=== PATIENT | female | born 1950 | race Caucasian/White ===

== ENCOUNTER → 2019-02-25 | Outpatient (CLI) | payer MEDICARE ==
--- NOTE | 2019-02-25 16:16 | REP ---
CT RIGHT SHOULDER WITHOUT CONTRAST: Axial CT right shoulder performed with sagittal and coronal oblique reconstruction images performed. No acute fracture or dislocation is seen. There are degenerative changes of the visualized cervical and thoracic spine. There is spurring of the distal end of the clavicle. There is widening of the acromioclavicular joint which may be due to prior distal clavicle excision. There is severe narrowing of the glenohumeral joint. There is moderate degree of subchondral sclerosis and cystic change. There is significant spurring of the humeral head. There is irregularity of the joint surface of the glenoid particularly anteriorly. Several subcentimeter right axillary lymph nodes are present. One lymph node is mildly enlarged with a short axis dimension of 1.2 cm. There appear to be fibrotic changes in the right lung. A tiny calcified lymph node is seen in the right hilum and there is a calcified granuloma in the right lung just below the level of the hilum. 2 mm nodular density in the right upper lobe anteriorly on image 35 is of doubtful significance. 4 mm nodular density in the right middle lobe on image 53 is also of doubtful significance. There is no gross discontinuity of the rotator cuff tendons. IMPRESSION: Severe arthritic changes glenohumeral joint. No acute fracture or dislocation. Rotator cuff tendons are grossly contiguous. Right axillary lymph node is mildly enlarged 1.2 cm in short axis dimension. Fibrotic changes are seen in the visualized right lung. Electronically Signed by Gregg Alexis MD 02/26/2019 06:09 P
== END ==
LOC: M RAD 14:58
PROVIDERS: ATTEND Orthopaedic Surgery Hand Surgery
DX: M19.011 Primary osteoarthritis, right shoulder (principal)